=== PATIENT | female | born 1975 | race Caucasian/White ===

== ENCOUNTER 2018-12-21 05:25 | Emergency (ER) | payer OTHER ==
[~2018-12-21] VITALS: Ht 157.5 cm; Wt 59.1 kg
[2018-12-21 05:26] VITALS: BP 115/71
== END 2018-12-21 06:20 | disposition home or self-care (01) ==
LOC: M ED 05:25
DX: H01.9 Unspecified inflammation of eyelid (principal)

== ENCOUNTER 2019-03-19 22:01 | Emergency (ER) | payer OTHER ==
[~2019-03-19] VITALS: Ht 157.5 cm; Wt 59.1 kg
[2019-03-19 22:48] LABS: BASO % 0.2 % (0.0-1.0); EOS # 0.1 10^3/uL (0.0-0.50); EOS % 1.3 % (0.0-3.0); HEMATOCRIT 41.9 % (36.0-47.0); HEMOGLOBIN 14.6 g/dl (12.0-15.5); LYMPH # 0.7 10^3/uL (1.5-4.5); LYMPH % 8.7 % (24.0-44.0); MEAN CORPUSCULAR HEMOGLOBIN 31.3 pg (27.0-33.0); MEAN CORPUSCULAR HGB CONC 34.8 g/dl (32.0-36.5); MEAN CORPUSCULAR VOLUME 89.9 fl (80.0-96.0); MONO # 0.4 10^3/uL (0.0-0.8); MONO % 5.1 % (0.0-5.0); NEUTROPHILS % 84.5 % (36.0-66.0); PLATELET COUNT, AUTOMATED 305 10^3/uL (150-450); RED BLOOD COUNT 4.66 10^6/uL (4.00-5.40); WHITE BLOOD COUNT 8.3 10^3/uL (4.0-10.0)
[2019-03-19 23:12] LABS: ALT/SGPT 29 U/L (12-78); BILIRUBIN,DIRECT 0.2 MG/DL (0.0-0.2); BLOOD UREA NITROGEN 12 MG/DL (7-18); CALCIUM LEVEL 8.8 MG/DL (8.5-10.1); CARBON DIOXIDE LEVEL 29 MEQ/L (21-32); CHLORIDE LEVEL 104 MEQ/L (98-107); CREATININE FOR GFR 0.79 MG/DL (0.55-1.30); GLOMERULAR FILTRATION RATE > 60.0 (>58); GLUCOSE, FASTING 108 MG/DL (70-100); LIPASE 135 U/L (73-393); POTASSIUM SERUM 3.9 MEQ/L (3.5-5.1); SODIUM LEVEL 140 MEQ/L (136-145); TOTAL PROTEIN 7.3 GM/DL (6.4-8.2)
[2019-03-19 23:14] LABS: HCG, SERUM QUALITATIVE NEGATIVE (NEGATIVE)
[2019-03-20] MEDS ORDERED: ONDANSETRON 4MG/2ML VIAL (J2405) IV ONE (00:30)
[2019-03-20] MEDS ORDERED: NS 1,000 ML IV ONE (00:30)
[2019-03-20 01:19] VITALS: BP 124/58
[2019-03-20 01:34] LABS: CK-MB VALUE MASS 1.2 NG/ML (<3.6); CPK CREATINE PHOSPHOKINASE 135 U/L (26-192); MB/CK RELATIVE INDEX 0.89 (< OR =4); TROPONIN I < 0.02 NG/ML (< 0.10)
[2019-03-20] MEDS ORDERED: ONDA4TAB6 PO (02:37)
--- NOTE | 2019-03-21 08:55 | ECGEPIP ---
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
== END 2019-03-20 02:55 | disposition home or self-care (01) ==
LOC: M ED 22:01
DX: R11.2 Nausea with vomiting, unspecified (principal); R19.7 Diarrhea, unspecified
CPT/HCPCS: 80048; 80076; 81001; 82550; 82553; 83690; 84484; 84703; 85025; 93005; 96374; 99284; J2405

== ENCOUNTER 2019-11-22 08:55 | Emergency (ER) | payer OTHER ==
[~2019-11-22] VITALS: Ht 157.5 cm; Wt 61.8 kg
[2019-11-22 08:55] VITALS: BP 117/72
[~2019-11-22 08:55] MED LIST: ONDA4TAB6 PO
--- NOTE | 2019-11-22 09:59 | REP ---
Right lower extremity Duplex Doppler venous ultrasound: Real time compression and duplex Doppler interrogation of the right lower extremity deep venous system is performed. The right common femoral, superficial femoral and popliteal veins are fully compressible with transducer pressure and demonstrate normal spontaneous and phasic flow, without evidence of deep venous thrombosis. Impression: No evidence of deep venous thrombosis of the right lower extremity femoral popliteal venous system. Electronically Signed by Oh Avila MD 11/22/2019 09:50 A
[2019-11-22 10:14] LABS: BASO % 0.8 % (0.0-1.0); EOS # 0.2 10^3/uL (0.0-0.5); EOS % 3.1 % (0.0-3.0); HEMATOCRIT 42.7 % (36.0-47.0); HEMOGLOBIN 14.2 g/dl (12.0-15.5); LYMPH # 1.4 10^3/uL (1.5-5.0); LYMPH % 26.5 % (24.0-44.0); MEAN CORPUSCULAR HEMOGLOBIN 31.6 pg (27.0-33.0); MEAN CORPUSCULAR HGB CONC 33.3 g/dl (32.0-36.5); MEAN CORPUSCULAR VOLUME 94.9 fl (80.0-96.0); MONO # 0.3 10^3/uL (0.0-0.8); MONO % 6.2 % (0.0-5.0); NEUTROPHILS # 3.3 10^3/uL (1.5-8.5); NEUTROPHILS % 63.2 % (36.0-66.0); PLATELET COUNT, AUTOMATED 270 10^3/uL (150-450); WHITE BLOOD COUNT 5.2 10^3/uL (4.0-10.0)
[2019-11-22 10:24] LABS: INR 1.05; PROTHROMBIN TIME 13.5 SECONDS (11.8-14.0)
[2019-11-22 10:25] LABS: PARTIAL THROMBOPLASTIN TIME 29.8 SECONDS (25.0-38.4)
[2019-11-22 10:35] LABS: ERYTHROCYTE SEDIMENTATION RATE 2 mm/hr (0-20)
[2019-11-22 10:38] LABS: D-DIMER QUANT < 270 ng/ml (<500)
[2019-11-22 10:50] LABS: ALBUMIN 4.4 GM/DL (3.2-5.2); ALT/SGPT 26 U/L (12-78); BILIRUBIN,DIRECT 0.4 MG/DL (0.0-0.2); BILIRUBIN,TOTAL 1.7 MG/DL (0.2-1.0); CK-MB VALUE MASS 2.6 NG/ML (<3.6); CPK CREATINE PHOSPHOKINASE 191 U/L (26-192); MB/CK RELATIVE INDEX 1.36 (< OR =4); TOTAL PROTEIN 7.8 GM/DL (6.4-8.2); TROPONIN I < 0.02 NG/ML (< 0.10)
--- NOTE | 2019-11-23 18:36 | ECGEPIP ---
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
== END 2019-11-22 12:03 | disposition home or self-care (01) ==
LOC: M ED 08:55
DX: R10.30 Lower abdominal pain, unspecified (principal); G89.29 Other chronic pain; M25.50 Pain in unspecified joint; K58.9 Irritable bowel syndrome, unspecified

== ENCOUNTER 2019-12-30 20:02 | Emergency (ER) | payer OTHER ==
[~2019-12-30] VITALS: Ht 157.5 cm; Wt 63.4 kg
[2019-12-30] MEDS ORDERED: D 50CAP2 (20:08)
[2019-12-30 20:41] LABS: BASO % 0.6 % (0.0-1.0); EOS # 0.3 10^3/uL (0.0-0.5); EOS % 4.2 % (0.0-3.0); HEMATOCRIT 39.6 % (36.0-47.0); LYMPH # 1.9 10^3/uL (1.5-5.0); LYMPH % 31.1 % (24.0-44.0); MEAN CORPUSCULAR HGB CONC 32.8 g/dl (32.0-36.5); MEAN CORPUSCULAR VOLUME 94.5 fl (80.0-96.0); MONO # 0.5 10^3/uL (0.0-0.8); NEUTROPHILS # 3.5 10^3/uL (1.5-8.5); NEUTROPHILS % 55.9 % (36.0-66.0); PLATELET COUNT, AUTOMATED 283 10^3/uL (150-450); RED BLOOD COUNT 4.19 10^6/uL (4.00-5.40); WHITE BLOOD COUNT 6.2 10^3/uL (4.0-10.0)
[2019-12-30 21:06] LABS: HCG, SERUM QUALITATIVE NEGATIVE (NEGATIVE)
[2019-12-30 21:13] LABS: ALBUMIN 3.9 GM/DL (3.2-5.2); ALT/SGPT 25 U/L (12-78); BILIRUBIN,DIRECT 0.1 MG/DL (0.0-0.2); BILIRUBIN,TOTAL 0.7 MG/DL (0.2-1.0); BLOOD UREA NITROGEN 11 MG/DL (7-18); CALCIUM LEVEL 8.8 MG/DL (8.5-10.1); CARBON DIOXIDE LEVEL 29 MEQ/L (21-32); CHLORIDE LEVEL 104 MEQ/L (98-107); CK-MB VALUE MASS 1.5 NG/ML (<3.6); CPK CREATINE PHOSPHOKINASE 123 U/L (26-192); CREATININE FOR GFR 0.92 MG/DL (0.55-1.30); GLOMERULAR FILTRATION RATE > 60.0 (>58); GLUCOSE, FASTING 92 MG/DL (70-100); LIPASE 187 U/L (73-393); MB/CK RELATIVE INDEX 1.22 (< OR =4); POTASSIUM SERUM 4.2 MEQ/L (3.5-5.1); SODIUM LEVEL 139 MEQ/L (136-145); TOTAL PROTEIN 7.4 GM/DL (6.4-8.2); TROPONIN I < 0.02 NG/ML (< 0.10)
[2019-12-30] MEDS ORDERED: GI COCKTAIL 50ML BTL(HYOSCYAMINE/MAALOX/LIDOCAINE VISCOUS)(1:3:1) PO ONE (21:15)
[2019-12-30] MEDS ORDERED: HYOS1TAB PO (22:06)
[2019-12-30 22:15] VITALS: BP 109/74
--- NOTE | 2019-12-31 02:52 | REP ---
Clinical: Acute chest pain . Comparison: None . Findings: The mediastinum and cardiac silhouette are stable and within normal limits for portable technique. The lung portillo are clear without acute consolidation, effusion, or pneumothorax. Skeletal structures are intact. Evidence of prior mammoplasty. Impression: No acute cardiopulmonary process appreciated. Electronically Signed by Robert Saxena MD 12/31/2019 02:44 A
--- NOTE | 2019-12-31 05:41 | ECGEPIP ---
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
== END 2019-12-30 22:28 | disposition home or self-care (01) ==
LOC: M ED 20:02
DX: R07.89 Other chest pain (principal); R10.11 Right upper quadrant pain

== ENCOUNTER → 2020-01-09 | Outpatient (CLI) | payer OTHER ==
[~2020-01-09] MED LIST changes: +D 50CAP2; +HYOS1TAB PO
--- NOTE | 2020-01-10 04:05 | REP ---
Clinical: Right upper quadrant pain. Technique: Real time levy scale ultrasound examination using curved array transducer. Findings: Liver and pancreas are normal in appearance and echotexture without focal hepatic or pancreatic lesion identified. The gallbladder is normal and without gallstones, wall thickening, or pericholecystic fluid. No biliary ductal dilatation is appreciated and the common bile duct measures 2.1 mm diameter. The right kidney is normal in reniform shape without hydronephrosis and measures 10.5 x 5.3 x 3.5 cm. No ascites in the visualized right upper quadrant. Impression: Normal right upper quadrant ultrasound. Electronically Signed by Robert Saxena MD 01/10/2020 03:56 A
== END ==
LOC: M LRY 09:15
PROVIDERS: ATTEND Nurse Practitioner Primary Care
DX: R10.9 Unspecified abdominal pain (principal)